=== PATIENT | male | born 1975 | race African-American/Black ===

== ENCOUNTER → 2017-08-08 | Outpatient (CLI) | payer MEDICAID ==
[~2017-08-08] MED LIST: AMLO10TA2 PO; CEPH500T PO; HYDR-4153 PO; INSLAN SQ; LEVO25TA9 PO; METO-408 PO; METO25 PO; METO50 PO; TYL3 PO
[2017-08-08 14:51] VITALS: BP 133/89
== END | disposition home or self-care (01) ==
LOC: WHH 08:30
PROVIDERS: ATTEND Podiatrist Foot & Ankle Surgery
DX: E11.621 Type 2 diabetes mellitus with foot ulcer (principal); L97.511 Non-pressure chronic ulcer of other part of right foot limited to breakdown of skin; L97.521 Non-pressure chronic ulcer of other part of left foot limited to breakdown of skin; E11.42 Type 2 diabetes mellitus with diabetic polyneuropathy; I10 Essential (primary) hypertension; E11.21 Type 2 diabetes mellitus with diabetic nephropathy; Z86.73 Personal history of transient ischemic attack (TIA), and cerebral infarction without residual deficits; Z79.4 Long term (current) use of insulin
CPT/HCPCS: 99205; A4450

== ENCOUNTER → 2017-08-15 | Outpatient (CLI) | payer MEDICAID ==
[2017-08-15 15:48] VITALS: BP 175/106
== END | disposition home or self-care (01) ==
LOC: WHH 08:00
PROVIDERS: ATTEND Podiatrist Foot & Ankle Surgery
DX: E11.621 Type 2 diabetes mellitus with foot ulcer (principal); L97.511 Non-pressure chronic ulcer of other part of right foot limited to breakdown of skin; I10 Essential (primary) hypertension; E11.42 Type 2 diabetes mellitus with diabetic polyneuropathy; E11.21 Type 2 diabetes mellitus with diabetic nephropathy; Z79.4 Long term (current) use of insulin; Z86.73 Personal history of transient ischemic attack (TIA), and cerebral infarction without residual deficits
CPT/HCPCS: 99214; A4450

== ENCOUNTER → 2017-08-23 | Outpatient (CLI) | payer MEDICAID | END | disposition home or self-care (01) | LOC: RAH 08:12 | PROVIDERS: ATTEND Podiatrist Foot & Ankle Surgery | DX: E11.621 Type 2 diabetes mellitus with foot ulcer (principal); L97.519 Non-pressure chronic ulcer of other part of right foot with unspecified severity; M86.8X7 Other osteomyelitis, ankle and foot | CPT/HCPCS: 73630 ==

== ENCOUNTER → 2017-10-03 | Outpatient (CLI) | payer MEDICAID ==
[~2017-10-03] MED LIST changes: +CADEXOMER IODINE 40 GM GEL TP ONE
[2017-10-03 13:55] VITALS: BP 125/86
== END | disposition home or self-care (01) ==
LOC: WHH 10:55
PROVIDERS: ATTEND Podiatrist Foot & Ankle Surgery
DX: E11.621 Type 2 diabetes mellitus with foot ulcer (principal); L97.511 Non-pressure chronic ulcer of other part of right foot limited to breakdown of skin; E11.42 Type 2 diabetes mellitus with diabetic polyneuropathy; E11.69 Type 2 diabetes mellitus with other specified complication; M86.8X7 Other osteomyelitis, ankle and foot; E11.21 Type 2 diabetes mellitus with diabetic nephropathy; I10 Essential (primary) hypertension; Z79.4 Long term (current) use of insulin; Z86.73 Personal history of transient ischemic attack (TIA), and cerebral infarction without residual deficits
CPT/HCPCS: 11042

== ENCOUNTER → 2017-10-24 | Outpatient (CLI) | payer MEDICAID ==
[~2017-10-24] MED LIST changes: -CADEXOMER IODINE 40 GM GEL TP ONE
[2017-10-24 14:15] VITALS: BP 170/119
== END | disposition home or self-care (01) ==
LOC: WHH 09:50
PROVIDERS: ATTEND Podiatrist Foot & Ankle Surgery
DX: E11.621 Type 2 diabetes mellitus with foot ulcer (principal); L97.511 Non-pressure chronic ulcer of other part of right foot limited to breakdown of skin; E11.42 Type 2 diabetes mellitus with diabetic polyneuropathy; E11.69 Type 2 diabetes mellitus with other specified complication; M86.8X7 Other osteomyelitis, ankle and foot; E11.21 Type 2 diabetes mellitus with diabetic nephropathy; I10 Essential (primary) hypertension; Z79.4 Long term (current) use of insulin; Z86.73 Personal history of transient ischemic attack (TIA), and cerebral infarction without residual deficits
CPT/HCPCS: 99214

== ENCOUNTER 2017-10-25 13:39 | Inpatient (IN) | payer MEDICAID ==
[~2017-10-25] VITALS: Ht 170.2 cm; Wt 71.3 kg
[2017-10-25] MEDS ORDERED: ZOSYN 3.375GM+NS 50ML 50 ML IV ONE (14:23)
[2017-10-25 14:25] LABS: BASOPHILS % (AUTO) 0.8 % (0.0-5.0); EOSINOPHILS % (AUTO) 4.1 % (0.0-8.0); HEMATOCRIT 31.1 % (42-54); MEAN CORPUSCULAR VOLUME 82.2 fL (79-99); MONOCYTES % (AUTO) 7.6 % (3.0-13.0); NEUTROPHILS % (AUTO) 68.5 % (40.0-77.0); PLATELET COUNT (AUTO) 224 K/uL (130-400); RED BLOOD CELL COUNT(AUTO) 3.79 MIL/uL (4.50-6.20); WHITE BLOOD COUNT (AUTO) 8.4 K/uL (4.8-10.8)
[2017-10-25 14:36] LABS: CREATININE 3.4 mg/dL (0.5-1.5); POTASSIUM 4.1 mmol/L (3.5-5.1)
[2017-10-25 14:40] LABS: ALBUMIN 2.8 g/dL (3.5-5.0); BILIRUBIN,TOTAL 0.3 mg/dL (0.2-1.0); TOTAL PROTEIN, SERUM 7.2 g/dL (6.0-8.3)
[2017-10-25 15:24] VITALS: BP 154/94
[2017-10-25] MEDS ORDERED: METO-408 PO (15:36)
[2017-10-25] MEDS ORDERED: HYDR-4153 PO (15:36)
[2017-10-25] MEDS ORDERED: AMLO10TA2 PO (15:36)
[2017-10-25] MEDS ORDERED: INSLAN SQ (15:36)
[2017-10-25] MEDS ORDERED: LEVO25TA9 PO (15:36)
[2017-10-25 16:00] VITALS: BP 167/102
[2017-10-25] MEDS ORDERED: HYDRALAZINE HCL 20 MG/ML VIAL IM PRN (16:30)
[2017-10-25] MEDS ORDERED: GLUCAGON 1MG KIT 1 MG ML IM PRN (17:00)
[2017-10-25] MEDS ORDERED: DEXTROSE 50%-WATER 50 ML DISP.SYRIN IV PRN (17:00)
[2017-10-25 17:56] VITALS: BP 152/97
[2017-10-25 19:00] VITALS: BP 133/76
[2017-10-25 20:00] VITALS: BP 158/94
[2017-10-25] MEDS ORDERED: HOME MEDICATION 1 EACH PO SCH (21:00)
[2017-10-25] MEDS: INSULIN GLARGINE 100 UNITS/ML 10 ML VIAL SQ SCH (21:00)
[2017-10-25] MEDS: INSULIN HUMULIN R 100 UNIT/ML 3ML SQ SCH (21:00)
[2017-10-25] MEDS ORDERED: TOPROL 25 MG PO SCH (21:15)
[2017-10-25] MEDS: HYDRALAZINE HCL 25 MG TABLET PO SCH (21:24)
[2017-10-25] MEDS: ZOSYN 3.375GM+NS 50ML 50 ML IV SCH (21:25)
[2017-10-25] MEDS ORDERED: METO25 PO (21:47)
[2017-10-25] MEDS ORDERED: HYDRALAZINE HCL 20 MG/ML VIAL IV PRN (22:30)
[2017-10-26] VITALS (22 sets, daily range): BP systolic 88–197; BP diastolic 36–117
[2017-10-26] MEDS ORDERED: HYDROMORPHONE 1 MG/1 ML AMP IVP ONE (00:45)
[2017-10-26] MEDS ORDERED: MORPHINE SULFATE 4 MG/1ML SYG IVP PRN (00:45)
[2017-10-26] MEDS ORDERED: HYDROMORPHONE 1 MG/1 ML AMP ONE (01:07)
[2017-10-26] MEDS: LEVOTHYROXINE 25 MCG TABLET PO SCH (06:12)
[2017-10-26] MEDS: INSULIN HUMULIN R 100 UNIT/ML 3ML SQ SCH ×4 (06:13→21:00)
[2017-10-26] MEDS: ZOSYN 3.375GM+NS 50ML 50 ML IV SCH ×4 (06:13→22:03)
[2017-10-26] MEDS: AMLODIPINE BESYLATE 5 MG TAB PO SCH (10:19)
[2017-10-26] MEDS: METOPROLOL TARTRATE 25 MG TAB PO SCH ×2 (10:19→22:01)
[2017-10-26] MEDS ORDERED: SODIUM CHLORIDE 0.9% 1000ML 1,000 ML IV ONE (13:03)
[2017-10-26] MEDS ORDERED: MIDAZOLAM HCL 1 MG/ML 2ML VIAL ONE (13:20)
[2017-10-26] MEDS ORDERED: PROPOFOL 10 MG/ML 20ML VIAL IV ONE (13:20)
[2017-10-26] MEDS ORDERED: FENTANYL CITRATE PF 50 MCG/1 ML 2ML VIAL ONE (13:21)
[2017-10-26] MEDS ORDERED: BUPIVACAINE/PF 0.5% 30ML VIAL ONE (13:21)
[2017-10-26] MEDS: HYDRALAZINE HCL 25 MG TABLET PO SCH ×4 (14:00→22:01)
[2017-10-26] MEDS: INSULIN GLARGINE 100 UNITS/ML 10 ML VIAL SQ SCH (22:08)
[2017-10-27 04:10] VITALS: BP 147/79
[2017-10-27 05:03] LABS: HEMATOCRIT 30.6 % (42-54); MEAN CORPUSCULAR HEMOGLOBIN 28.2 pg (27.0-33.0); MEAN CORPUSCULAR HGB CONC 34.3 g/dL (32.0-36.0); MEAN CORPUSCULAR VOLUME 82.1 fL (79-99); PLATELET COUNT (AUTO) 242 K/uL (130-400); RED BLOOD CELL COUNT(AUTO) 3.73 MIL/uL (4.50-6.20); RED CELL DISTRIBUTION WIDTH 15.1 % (11.0-15.5); WHITE BLOOD COUNT (AUTO) 11.2 K/uL (4.8-10.8)
[2017-10-27 05:14] LABS: ALBUMIN 2.6 g/dL (3.5-5.0); BILIRUBIN,TOTAL 0.7 mg/dL (0.2-1.0); CREATININE 3.5 mg/dL (0.5-1.5); POTASSIUM 3.9 mmol/L (3.5-5.1); TOTAL PROTEIN, SERUM 6.8 g/dL (6.0-8.3)
[2017-10-27] MEDS: LEVOTHYROXINE 25 MCG TABLET PO SCH (06:45)
[2017-10-27] MEDS: INSULIN HUMULIN R 100 UNIT/ML 3ML SQ SCH (06:45)
[2017-10-27] MEDS: ZOSYN 3.375GM+NS 50ML 50 ML IV SCH (06:45)
[2017-10-27] MEDS: AMLODIPINE BESYLATE 5 MG TAB PO SCH (07:51)
[2017-10-27] MEDS: METOPROLOL TARTRATE 25 MG TAB PO SCH (07:51)
[2017-10-27] MEDS: HYDRALAZINE HCL 25 MG TABLET PO SCH (07:52)
[2017-10-27 08:00] VITALS: BP 167/99
[2017-10-27 08:49] VITALS: BP 143/90
[2017-10-27 11:00] VITALS: BP 146/89
[2017-10-27] MEDS ORDERED: TYL3 PO (11:26)
[2017-10-27] MEDS ORDERED: CEPH500T PO (11:26)
[2017-10-27] MEDS ORDERED: METO50 PO (11:26)
[2017-10-27] MEDS ORDERED: METOPROLOL TARTRATE 25 MG TAB ONE (12:46)
[2017-10-27] MEDS ORDERED: METOPROLOL TARTRATE 50 MG TAB PO SCH (21:00)
== END 2017-10-27 12:50 | disposition home or self-care (01) | DRG 305 ==
LOC: EDH 13:39 → EDHIP 13:40 → 3BH 15:06
PROVIDERS: ADMIT Family Medicine; ATTEND Family Medicine
PROC: 0Y6X0Z1 Detachment at Right 5th Toe, High, Open Approach (ICD-10-PCS; principal; 2017-10-25)
PROC: 0Y6M0ZF Detachment at Right Foot, Partial 5th Ray, Open Approach (ICD-10-PCS; 2017-10-25)
DX: E11.69 Type 2 diabetes mellitus with other specified complication (principal); M86.171 Other acute osteomyelitis, right ankle and foot; E11.65 Type 2 diabetes mellitus with hyperglycemia; L97.519 Non-pressure chronic ulcer of other part of right foot with unspecified severity; E11.42 Type 2 diabetes mellitus with diabetic polyneuropathy; E11.621 Type 2 diabetes mellitus with foot ulcer; M86.671 Other chronic osteomyelitis, right ankle and foot; I10 Essential (primary) hypertension; E11.628 Type 2 diabetes mellitus with other skin complications; L08.9 Local infection of the skin and subcutaneous tissue, unspecified; Z86.73 Personal history of transient ischemic attack (TIA), and cerebral infarction without residual deficits; Z87.891 Personal history of nicotine dependence; Z90.49 Acquired absence of other specified parts of digestive tract; Z88.2 Allergy status to sulfonamides; Z79.899 Other long term (current) drug therapy; Z79.4 Long term (current) use of insulin
CPT/HCPCS: 36415; 71045; 73630; 80053; 82947; 82948; 85025; 85027; 88305; 88311; 93005; J0360; J1170; J1815; J2250; J2270; J2543; J2704; J3010; J3490; J7030

== ENCOUNTER → 2017-11-07 | Outpatient (CLI) | payer MEDICAID ==
[~2017-11-07] MED LIST changes: -METO-408 PO; -METO25 PO
[2017-11-07 16:32] VITALS: BP 153/96
== END | disposition home or self-care (01) ==
LOC: WHH 10:30
PROVIDERS: ATTEND Podiatrist Foot & Ankle Surgery
DX: T87.89 Other complications of amputation stump (principal); E11.621 Type 2 diabetes mellitus with foot ulcer; L97.511 Non-pressure chronic ulcer of other part of right foot limited to breakdown of skin; E11.42 Type 2 diabetes mellitus with diabetic polyneuropathy; E11.69 Type 2 diabetes mellitus with other specified complication; M86.671 Other chronic osteomyelitis, right ankle and foot; E11.21 Type 2 diabetes mellitus with diabetic nephropathy; E11.65 Type 2 diabetes mellitus with hyperglycemia; E11.52 Type 2 diabetes mellitus with diabetic peripheral angiopathy with gangrene; I96 Gangrene, not elsewhere classified; I10 Essential (primary) hypertension; Z79.4 Long term (current) use of insulin; Z86.73 Personal history of transient ischemic attack (TIA), and cerebral infarction without residual deficits; Z87.891 Personal history of nicotine dependence; Y83.5 Amputation of limb(s) as the cause of abnormal reaction of the patient, or of later complication, without mention of misadventure at the time of the procedure
CPT/HCPCS: 99214

== ENCOUNTER 2018-01-23 11:00 | Outpatient (CLI) | payer MEDICARE ==
[~2018-01-23 11:00] MED LIST changes: -AMLO10TA2 PO; +AMLO10TA6 PO
[2018-01-23 12:03] VITALS: BP 210/120
== END 2018-01-23 14:19 | disposition home or self-care (01) ==
LOC: WHH 11:00
PROVIDERS: ATTEND Podiatrist Foot & Ankle Surgery
DX: T87.89 Other complications of amputation stump (principal); E11.621 Type 2 diabetes mellitus with foot ulcer; L97.528 Non-pressure chronic ulcer of other part of left foot with other specified severity; E11.42 Type 2 diabetes mellitus with diabetic polyneuropathy; E11.69 Type 2 diabetes mellitus with other specified complication; M86.671 Other chronic osteomyelitis, right ankle and foot; M86.171 Other acute osteomyelitis, right ankle and foot; E11.21 Type 2 diabetes mellitus with diabetic nephropathy; E11.65 Type 2 diabetes mellitus with hyperglycemia; E11.52 Type 2 diabetes mellitus with diabetic peripheral angiopathy with gangrene; I96 Gangrene, not elsewhere classified; I10 Essential (primary) hypertension; Z86.73 Personal history of transient ischemic attack (TIA), and cerebral infarction without residual deficits; Z87.891 Personal history of nicotine dependence; Z90.49 Acquired absence of other specified parts of digestive tract; Z79.4 Long term (current) use of insulin; Y83.5 Amputation of limb(s) as the cause of abnormal reaction of the patient, or of later complication, without mention of misadventure at the time of the procedure
CPT/HCPCS: 99214; G0463

== ENCOUNTER → 2018-05-29 | Outpatient (CLI) | payer MEDICARE ==
[~2018-05-29] MED LIST changes: -AMLO10TA6 PO; +AMLO10TA7 PO; +CADEXOMER IODINE 40 GM GEL TP ONE
[2018-05-29 12:56] VITALS: BP 178/120
[2018-05-29 13:26] VITALS: BP 178/120
== END | disposition home or self-care (01) ==
LOC: WHH 08:30
PROVIDERS: ATTEND Podiatrist Foot & Ankle Surgery
DX: E11.621 Type 2 diabetes mellitus with foot ulcer (principal); L97.522 Non-pressure chronic ulcer of other part of left foot with fat layer exposed; E11.42 Type 2 diabetes mellitus with diabetic polyneuropathy; E11.69 Type 2 diabetes mellitus with other specified complication; M86.671 Other chronic osteomyelitis, right ankle and foot; M86.171 Other acute osteomyelitis, right ankle and foot; E11.21 Type 2 diabetes mellitus with diabetic nephropathy; E11.52 Type 2 diabetes mellitus with diabetic peripheral angiopathy with gangrene; I96 Gangrene, not elsewhere classified; I10 Essential (primary) hypertension; Z86.73 Personal history of transient ischemic attack (TIA), and cerebral infarction without residual deficits; Z87.891 Personal history of nicotine dependence; Z90.49 Acquired absence of other specified parts of digestive tract; Z79.4 Long term (current) use of insulin
CPT/HCPCS: 11042; 82948; A4450